=== PATIENT | female | born 2000 | race African-American/Black ===

== ENCOUNTER 2021-10-09 11:50 | Inpatient (IN) ==
[2021-10-09] MEDS ORDERED: ONDANSETRON 4 MG/2 ML VIAL IV STA (12:11)
[2021-10-09] MEDS ORDERED: SODIUM CHLORIDE 0.9% 2,000 ML IV STA (12:11)
[2021-10-09] MEDS ORDERED: ACETAMINOPHEN 500 MG TABLET PO STA (12:12)
[2021-10-09 12:29] LABS: Basophils % 0.2 % (0.0-0.8); Hematocrit 34.9 VOL% (35.7-47.0); Hemoglobin 11.4 GM/DL (12.0-16.0); Immature Granulocytes Absolute 0.24 #; Lymphocytes # 0.9 10*3/uL (1.4-4.0); Lymphocytes % 3.7 % (21.3-54.2); Mean Corpuscular HGB Conc 32.7 GM/DL (32-36); Mean Corpuscular Volume 91.1 FL (87-102); Mean Platelet Volume 10.9 FL (9.6-12.0); Monocytes % 7.9 % (1.7-12.7); Neutrophils % 87.2 % (38.7-73.9); Platelet Count 165 T/CUMM (130-400); Red Blood Count 3.83 MC/CUMM (3.8-5.5); Red Cell Distribution Width 12.5 % (9.3-17.3); White Blood Count 24.3 T/CUMM (4-12)
[2021-10-09 12:53] LABS: Albumin 3.1 G/DL (3.4-5.0); Band Neutrophils 14 % (0-10); Bilirubin,Total 0.9 MG/DL (0.20-1.00); Calcium 8.5 MG/DL (8.5-10.1); Lymphocytes 8 % (20-55); Osmolality,Calculated 276.7 MOS/KG (273-304); Potassium 3.4 MMOL/L (3.5-5.1); Segmented Neutrophils 71 % (50-85); Total Cells Counted 100; Total Protein 7.4 G/DL (6.4-8.2)
[2021-10-09 12:54] LABS: Anisocytosis Slight; Platelet Estimate Normal
[2021-10-09 12:55] LABS: Macrocytosis Slight
[2021-10-09 14:07] LABS: Bilirubin,Urine Negative (Negative); Blood, Urine Trace mg/dL (Negative); Glucose,Urine (UA) Negative (Negative); Ketones,Urine >160 mg/dL (Negative); Nitrite,Urine Positive (Negative); Protein,Urine 100 mg/dL (Negative); Urine Appearance Slightly Hazy (Clear); Urine Color Yellow (Yellow)
[2021-10-09 14:13] LABS: Bacteria,Urine Many /HPF (Few); Mucus,Urine Occasional /LPF (Occasional); RBC,Urine 3 /HPF (0-4); Squamous Epithelial Cell,Urine Occasional /HPF (0-10)
[2021-10-09] MEDS ORDERED: cefTRIAXone 1,000 MG in SODIUM CHLORIDE 0.9% 100 ML IV STA (14:31)
[2021-10-09] MEDS ORDERED: ONDANSETRON 4 MG/2 ML VIAL IV PRN (16:36)
[2021-10-09] MEDS ORDERED: ENOXAPARIN 40 MG/0.4 ML SYRINGE ONE (16:48)
[2021-10-09] MEDS: PANTOPRAZOLE 40 MG VIAL IV SCH (17:00)
[2021-10-09] MEDS ORDERED: SODIUM CHLORIDE 0.9% 1,000 ML IV SCH (17:00)
[2021-10-09] MEDS: ENOXAPARIN 40 MG/0.4 ML SYRINGE SUBCUT SCH (17:49)
[2021-10-09] MEDS: ACETAMINOPHEN 325 MG TABLET PO PRN (18:34)
[2021-10-10 04:49] LABS: Basophils % 0.2 % (0.0-0.8); Hematocrit 30.3 VOL% (35.7-47.0); Hemoglobin 10.1 GM/DL (12.0-16.0); Immature Granulocytes % 0.7 %; Immature Granulocytes Absolute 0.13 #; Lymphocytes # 1.3 10*3/uL (1.4-4.0); Lymphocytes % 6.7 % (21.3-54.2); Mean Corpuscular HGB Conc 33.3 GM/DL (32-36); Mean Corpuscular Volume 91.5 FL (87-102); Mean Platelet Volume 11.3 FL (9.6-12.0); Monocytes % 8.1 % (1.7-12.7); Neutrophils % 84.3 % (38.7-73.9); Platelet Count 160 T/CUMM (130-400); Red Blood Count 3.31 MC/CUMM (3.8-5.5); Red Cell Distribution Width 12.6 % (9.3-17.3); White Blood Count 18.9 T/CUMM (4-12)
[2021-10-10 05:11] LABS: Calcium 7.6 MG/DL (8.5-10.1); Osmolality,Calculated 274.5 MOS/KG (273-304); Potassium 3.3 MMOL/L (3.5-5.1)
[2021-10-10 05:17] LABS: Band Neutrophils 21 % (0-10); Lymphocytes 9 % (20-55); Segmented Neutrophils 63 % (50-85); Total Cells Counted 100
[2021-10-10 05:18] LABS: Anisocytosis 1+; Macrocytosis Slight; Platelet Estimate Normal
[2021-10-10] MEDS: ACETAMINOPHEN 325 MG TABLET PO PRN ×2 (06:30→18:37)
[2021-10-10] MEDS ORDERED: MAGNESIUM SULF RIDER 2 GM/50 ML PREMIX IV ONE (07:31)
[2021-10-10] MEDS: POTASSIUM CHLORIDE 20 MEQ TABLET PO SCH ×2 (08:48→11:20)
[2021-10-10] MEDS: PANTOPRAZOLE 40 MG VIAL IV SCH (08:50)
[2021-10-10] MEDS ORDERED: POTASSIUM CHLORIDE 20 MEQ TABLET PO SCH (11:30)
[2021-10-10] MEDS ORDERED: PROMETHAZINE INJ 12.5 MG in SODIUM CHLORIDE 0.9% 50 ML IV ONE (13:52)
[2021-10-10] MEDS: VANCOMYCIN 125 MG CAPSULE PO SCH ×2 (14:30→18:06)
[2021-10-10] MEDS ORDERED: cefTRIAXone 1,000 MG in SODIUM CHLORIDE 0.9% 100 ML IV SCH (15:00)
[2021-10-10] MEDS: ENOXAPARIN 40 MG/0.4 ML SYRINGE SUBCUT SCH (18:06)
[2021-10-10] MEDS: MORPHINE 2 MG/1 ML SYRINGE IV PRN (18:08)
[2021-10-11] MEDS: MORPHINE 2 MG/1 ML SYRINGE IV PRN (00:17)
[2021-10-11] MEDS: VANCOMYCIN 125 MG CAPSULE PO SCH ×2 (00:18→06:12)
[2021-10-11 07:00] LABS: Basophils % 0.2 % (0.0-0.8); Eosinophils # 0.1 10*3/uL (0.0-0.87); Eosinophils % 0.4 % (0.00-10.9); Hematocrit 29.3 VOL% (35.7-47.0); Hemoglobin 10.1 GM/DL (12.0-16.0); Immature Granulocytes % 0.4 %; Immature Granulocytes Absolute 0.07 #; Lymphocytes # 1.7 10*3/uL (1.4-4.0); Lymphocytes % 9.8 % (21.3-54.2); Mean Corpuscular HGB Conc 34.5 GM/DL (32-36); Mean Corpuscular Volume 89.3 FL (87-102); Mean Platelet Volume 11.7 FL (9.6-12.0); Monocytes % 9.1 % (1.7-12.7); Neutrophils % 80.1 % (38.7-73.9); Platelet Count 180 T/CUMM (130-400); Red Blood Count 3.28 MC/CUMM (3.8-5.5); Red Cell Distribution Width 12.8 % (9.3-17.3)
[2021-10-11 07:21] LABS: Calcium 8.4 MG/DL (8.5-10.1); Osmolality,Calculated 272.5 MOS/KG (273-304); Potassium 3.6 MMOL/L (3.5-5.1)
[2021-10-11] MEDS: PANTOPRAZOLE 40 MG VIAL IV SCH (08:42)
[2021-10-11] MEDS: ACETAMINOPHEN 325 MG TABLET PO PRN (09:55)
[2021-10-11 11:39] VITALS: BP 96/58
== END 2021-10-11 14:40 | disposition home or self-care (01) | DRG 372 ==
LOC: EDUNIT# → EDBD → N.ED 11:50 → SUATTDRO 16:36 → N.EDINP 16:36 → N.5E 17:11
PROVIDERS: ADMIT Internal Medicine; ATTEND Internal Medicine